=== PATIENT | female | born 1960 | race Caucasian/White ===

== ENCOUNTER 2018-10-08 09:06 | Day surgery (SDC) | payer BC ==
[~2018-10-08] VITALS: Ht 185.4 cm; Wt 108.4 kg
[~2018-10-08 09:06] MED LIST: CALCIUM CITRAT1 EAC6 PO; CRUTCH2 XX; GLUC500 PO; Glucosamine H1500 MG PO; HYDMOR2 PO; Mobic15 MG PO; NAPR220 PO; OMEP20ER PO; OMEPRAZOLE MAGN20 MG PO; ONDA8 PO; PRAV20 PO; Pravachol40 MG PO; SOMA350 MG PO; WARF5 PO; WARF7.5 PO
--- NOTE | 2018-10-08 12:41 | NUR ---
10/08/18 1241 Demarco Negron LATE ENTRY NURSE ASSISTED PATIENT WALK OUT TO HER RIDE HOME.
== END 2018-10-08 11:07 | disposition home or self-care (01) ==
LOC: ORSCSDS 09:06
PROVIDERS: Surgery
PROC: 0DJD8ZZ Inspection of Lower Intestinal Tract, Via Natural or Artificial Opening Endoscopic (ICD-10-PCS; principal; 2018-10-08 10:30)
DX: Z12.11 Encounter for screening for malignant neoplasm of colon (principal); Z86.010 Personal history of colon polyps; Z79.01 Long term (current) use of anticoagulants; E78.5 Hyperlipidemia, unspecified; K21.9 Gastro-esophageal reflux disease without esophagitis; Z87.891 Personal history of nicotine dependence; Z79.899 Other long term (current) drug therapy
CPT/HCPCS: J7120

== ENCOUNTER 2023-05-08 05:55 | Day surgery (SDC) | payer BC ==
[~2023-05-08] VITALS: Ht 182.9 cm; Wt 148.1 kg
[2023-05-08] VITALS (14 sets, daily range): BP systolic 123–192; BP diastolic 63–129
[~2023-05-08 05:55] MED LIST changes: -OMEPRAZOLE MAGN20 MG PO
[2023-05-08] MEDS ORDERED: GABA100 PO (06:49)
--- NOTE | 2023-05-08 07:20 | NUR ---
Ambulatory in Day Surgery. Pre-Op teaching done. Pt verbalizes understanding. Patient confirms NPO status and agrees with scheduled surgery. History, Chart, Medications and Allergies reviewed before start of procedure. Patient reports completing Chlorhexadine shower X2 prior to admission to hospital. Lungs clear T/O to Auscultation. Patient States Post-Procedure ride home has been arranged.
--- NOTE | 2023-05-08 09:56 | NUR ---
PT TO DAY SURGERY STEP DOWN. PT AWAKE AND ORIENTED X3. PT ON 2L O2. PT ASKING FOR HER -RN TO GET AND BRING TO BEDSIDE. RIGHT BUTTOCK INTACT WITH DERMABOND, DRIED BLOOD ON JOY PAD, NO CHANGE IN APPEARANCE PER TOE PULLER. NO COMPLAINTS AT THIS TIME.
--- NOTE | 2023-05-08 10:11 | NUR ---
AT SIDE. PT DRINKING PO FLUIDS AND TOLERATING WELL. NO CHANGE IN INCISION; INCISION SHOWN TO .
--- NOTE | 2023-05-08 10:20 | NUR ---
Discharge instructions reviewed with patient. Patient verbalizes understanding. Copy given to patient to take home. NO CHANGE IN INCISION. ICE PACK MADE; PT DECLINES USING AT THIS TIME, BUT WILL TAKE HOME. 02 TAKEN OFF.
--- NOTE | 2023-05-08 10:43 | NUR ---
Patient up to Ambulate independently. Gait steady. Patient States Post-Procedure ride home has been arranged. Discharged via wheelchair to private car for ride home.
== END 2023-05-08 10:46 | disposition home or self-care (01) ==
LOC: ORSCMMR 05:55 → ORD 07:30 → ORSCMMR 10:46
PROVIDERS: Surgery
PROC: 0JB90ZX Excision of Buttock Subcutaneous Tissue and Fascia, Open Approach, Diagnostic (ICD-10-PCS; principal; 2023-05-08 07:30)
DX: D17.79 Benign lipomatous neoplasm of other sites (principal); Z79.01 Long term (current) use of anticoagulants; E78.5 Hyperlipidemia, unspecified; K21.9 Gastro-esophageal reflux disease without esophagitis; E66.01 Morbid (severe) obesity due to excess calories; Z68.41 Body mass index [BMI] 40.0-44.9, adult; Z87.891 Personal history of nicotine dependence
CPT/HCPCS: 88304; A9270; J1100; J1885; J2250; J2405; J2704; J3010; J7120

== ENCOUNTER 2024-04-25 08:03 | Day surgery (SDC) | payer BC ==
[~2024-04-25] VITALS: Ht 185.4 cm; Wt 112.3 kg
[~2024-04-25 08:03] MED LIST changes: +CALCIUM CARBON500 M1 PO; +GABA100 PO; +Lactated Ringer's 1,000 ML IV SCH; +Norco 5-325 Ta1 EACH PO
[2024-04-25 08:48] VITALS: BP 131/62
--- NOTE | 2024-04-25 08:49 | NUR ---
Ambulatory in Day Surgery. History, Chart, Medications and Allergies reviewed before start of procedure. Lungs clear T/O to Auscultation. Patient confirms NPO status and agrees with scheduled surgery. Pre-Op teaching done. Pt verbalizes understanding. Patient States Post-Procedure ride home has been arranged.
[2024-04-25] MEDS ORDERED: propofoL 20 ML IV ONE (09:59)
[2024-04-25] MEDS ORDERED: Ondansetron HCl 2 MG / ML 2ML Vial ONE (10:00)
[2024-04-25] MEDS ORDERED: Lidocaine HCl 4% 5 ML SDA ONE (10:07)
[2024-04-25] MEDS ORDERED: propofoL 60 ML IV ONE (10:08)
--- NOTE | 2024-04-25 10:41 | NUR ---
04/25/24 1041 Cuco Benjamin MONITOR INTACT WITH CONTINUOUS PULSE OXIMETRY, CONTINUOUS END TITAL CO2, AND INTERMITTENT BLOOD PRESSURE.AND EKG MAC PER DR. VERNON
[2024-04-25 11:03] VITALS: BP 145/77
--- NOTE | 2024-04-25 11:03 | NUR ---
PT TO DAY SURGERY STEP DOWN FROM EGD AND COLONOSCOPY; BEDSIDE REPORT RECEIVED. PT IS AWAKE, ALERT AND ORIENTED. PT HAS NO COMPLAINTS AT THIS TIME.
--- NOTE | 2024-04-25 11:07 | NUR ---
PT TOLERATING PO FLUIDS WELL
[2024-04-25 11:18] VITALS: BP 129/77
--- NOTE | 2024-04-25 11:22 | NUR ---
Discharge instructions reviewed with patient. Patient verbalizes understanding. Copy given to patient to take home. Patient States Post-Procedure ride home has been arranged.
--- NOTE | 2024-04-25 11:29 | NUR ---
Patient up to Ambulate independently. Gait steady. Discharged via wheelchair to private car for ride home.
== END 2024-04-25 11:30 | disposition home or self-care (01) ==
LOC: ORSCMMR 08:03 → ORD 09:30 → ORSCMMR 09:30
PROVIDERS: Surgery
PROC: 0DBN8ZX Excision of Sigmoid Colon, Via Natural or Artificial Opening Endoscopic, Diagnostic (ICD-10-PCS; principal; 2024-04-25 09:30)
PROC: 0DJ08ZZ Inspection of Upper Intestinal Tract, Via Natural or Artificial Opening Endoscopic (ICD-10-PCS; principal; 2024-04-25 09:30)
DX: Z12.11 Encounter for screening for malignant neoplasm of colon (principal); Z86.010 Personal history of colon polyps; K21.9 Gastro-esophageal reflux disease without esophagitis; D12.5 Benign neoplasm of sigmoid colon; G47.33 Obstructive sleep apnea (adult) (pediatric); E78.5 Hyperlipidemia, unspecified; Z87.891 Personal history of nicotine dependence; Z79.01 Long term (current) use of anticoagulants; Z79.899 Other long term (current) drug therapy
CPT/HCPCS: 88305; J2001; J2405; J2704; J7120